=== PATIENT | female | born 1990 | race Caucasian/White ===

== ENCOUNTER 2016-06-23 17:43 | Emergency (ER) | payer OTHER ==
[~2016-06-23] VITALS: Ht 175.3 cm; Wt 57.1 kg
[~2016-06-23 17:43] MED LIST: ACID REDUCER150 MG PO; BACTRIM,SEPT1 TABLET PO; BENTYL10 MG PO; CLEOCIN300 MG PO; FLEXERIL5 MG PO; INDOCIN25 MG PO; KEFLEX500 MG PO; KENALOG,ARISTOC80 GM TP; LIDOCAINE20 MG/1 M5 PO; MIRALAX255 GM PO; MONONESSA1 EACH PO; MOTRIN600 MG PO; MOTRIN800 MG PO; NAPROSYN500 MG PO; NAPROXEN500 MG PO; NEURONTIN400 MG PO; NOHOMEMEDS; NORCO 5/3251 TABLET PO; OXYCODONE HCL5 MG PO; PERCOCET 5/31 TABLET PO; TRAMADOL HCL50 MG PO; TYLENOL WITH C1 EACH PO; VALIUM5 MG PO; ZOFRAN ODT8 MG PO
[2016-06-23] MEDS ORDERED: NAPROXEN500 MG PO (20:13)
[2016-06-23 20:31] VITALS: BP 110/69
== END 2016-06-23 20:32 | disposition home or self-care (01) ==
LOC: EXP 17:43 → EME 17:43 → EXP 20:32
PROC: 2W3RX1Z Immobilization of Left Lower Leg using Splint (ICD-10-PCS; principal; 2016-06-23)
DX: S93.402A Sprain of unspecified ligament of left ankle, initial encounter (principal); X50.1XXA Overexertion from prolonged static or awkward postures, initial encounter; Y92.003 Bedroom of unspecified non-institutional (private) residence as the place of occurrence of the external cause; F17.200 Nicotine dependence, unspecified, uncomplicated; Z88.0 Allergy status to penicillin; Z88.1 Allergy status to other antibiotic agents; Z88.6 Allergy status to analgesic agent
CPT/HCPCS: 73610; 99281; 99284

== ENCOUNTER 2017-04-23 21:39 | Emergency (ER) | payer OTHER ==
[~2017-04-23] VITALS: Ht 175.3 cm; Wt 58.5 kg
[2017-04-23 22:13] LABS: HEMATOCRIT 43.1 % (36.0-46.0); MCH 30.6 PG (29.0-34.0); MCHC 33.4 G/DL (30.0-36.0); MCV 91.7 FL (83-99); PLATELET COUNT 327 K/uL (156-360); RBC DIS.WIDTH-CV 12.7 % (11.8-14.6); RBC DIS.WIDTH-SD 43.2 % (39-53); WHITE BLOOD COUNT 10.5 K/uL (4.1-10.2)
[2017-04-23 22:22] LABS: CHLORIDE 103 mEq/L (99-109); POTASSIUM 3.9 mEq/L (3.7-5.4)
[2017-04-23 22:23] LABS: SODIUM 138 mEq/L (136-147)
[2017-04-23 22:24] LABS: GLUCOSE 90 mg/dL (70-99)
[2017-04-23 22:26] LABS: ANION GAP 11 MEQ/L (2-14)
[2017-04-23 22:28] LABS: GFR ESTIMATE (CALCULATED) > 59 mL/min/
[2017-04-23 22:29] LABS: UREA NITROGEN (BUN) 8 mg/dL (9-23)
[2017-04-23 22:36] LABS: TROP-I INTERPRETATION NEGATIVE; TROPONIN-I < 0.01 ng/mL (0.0-0.30)
[2017-04-23 22:42] LABS: D-DIMER ELISA < 150.00 ng/mLDDU (<230)
[2017-04-24] MEDS ORDERED: INDOCIN50 MG PO
[2017-04-24 00:07] VITALS: BP 139/94
== END 2017-04-24 00:07 | disposition home or self-care (01) ==
LOC: EME 21:39 → RME 21:39
DX: R07.89 Other chest pain (principal); M94.0 Chondrocostal junction syndrome [Tietze]; F17.200 Nicotine dependence, unspecified, uncomplicated; F41.9 Anxiety disorder, unspecified; Z88.0 Allergy status to penicillin; Z88.8 Allergy status to other drugs, medicaments and biological substances
CPT/HCPCS: 71020; 80048; 84484; 85027; 85379; 93005; 99281; 99283

== ENCOUNTER 2017-09-24 15:57 | Emergency (ER) | payer OTHER ==
[~2017-09-24] VITALS: Ht 175.3 cm; Wt 62.3 kg
[~2017-09-24 15:57] MED LIST changes: +INDOCIN50 MG PO
[2017-09-24 16:42] LABS: APPEARANCE CLOUDY ((CLEAR)); BILIRUBIN NEGATIVE; BLOOD MODERATE; COLOR YELLOW ((YELLOW)); GLUCOSE (STRIP) NEGATIVE; KETONES NEGATIVE; LEUKOCYTES SMALL; NITRITE NEGATIVE; PROTEIN (STRIP) NEGATIVE; UROBILINOGEN 0.2 MG/DL (0.2-1.0)
[2017-09-24 16:59] LABS: HEMATOCRIT 42.3 % (36.0-46.0); HEMOGLOBIN 14.1 G/DL (11.9-15.5); MCH 31.5 PG (29.0-34.0); MCHC 33.3 G/DL (30.0-36.0); MCV 94.6 FL (83-99); PLATELET COUNT 284 K/uL (156-360); RBC DIS.WIDTH-CV 13.3 % (11.8-14.6); RBC DIS.WIDTH-SD 46.8 % (39-53); RED BLOOD COUNT 4.47 M/uL (3.80-5.20)
[2017-09-24 17:08] LABS: ALBUMIN 4.7 g/dL (3.2-4.8)
[2017-09-24 17:09] LABS: CHLORIDE 106 mEq/L (99-109); POTASSIUM 4.3 mEq/L (3.7-5.4); SODIUM 141 mEq/L (136-147)
[2017-09-24 17:09] LABS: RED BLOOD CELLS RARE /HPF (0-5)
[2017-09-24 17:10] LABS: BACTERIA 1+ /HPF; EPITHELIAL CELLS RARE /HPF; MUCUS NONE SEEN /LPF; UCUL ADDED? YES
[2017-09-24 17:11] LABS: GLUCOSE 83 mg/dL (70-99); TOTAL PROTEIN 7.5 g/dL (6.4-8.3)
[2017-09-24 17:13] LABS: TOTAL BILIRUBIN 0.3 mg/dL (0.0-1.0)
[2017-09-24 17:14] LABS: ALKALINE PHOSPHATASE 97 IU/L (3-129)
[2017-09-24 17:15] LABS: CREATININE 0.8 mg/dL (0.6-1.3); GFR ESTIMATE (CALCULATED) > 59 mL/min/
[2017-09-24 17:16] LABS: AST (GOT) 15 IU/L (2-34); UREA NITROGEN (BUN) 12 mg/dL (9-23)
[2017-09-24 17:17] LABS: ALT (GPT) 15 IU/L (3-49)
[2017-09-24 17:23] LABS: QUANTITATIVE HCG < 4.0 MIU/ML
[2017-09-24 19:32] LABS: LIPASE 55 U/L (1.0-51.0)
[2017-09-24] MEDS ORDERED: BACTRIM,SEPT1 TABLET PO (21:00)
[2017-09-24] MEDS ORDERED: NAPROSYN500 MG PO (21:00)
[2017-09-24 21:38] VITALS: BP 123/73
== END 2017-09-24 21:41 | disposition home or self-care (01) ==
LOC: EME 15:57
DX: N83.201 Unspecified ovarian cyst, right side (principal); N39.0 Urinary tract infection, site not specified; F17.210 Nicotine dependence, cigarettes, uncomplicated; F41.9 Anxiety disorder, unspecified; Z88.0 Allergy status to penicillin; Z88.5 Allergy status to narcotic agent
CPT/HCPCS: 76856; 80053; 81003; 83690; 84702; 85027; 87086; 99281; 99284